=== PATIENT | male | born 1980 | race Caucasian/White ===

== ENCOUNTER 2021-01-16 23:09 | Emergency (ER) | payer OTHER ==
[~2021-01-16 23:09] MED LIST: ALBUTEROL1.25 MG/3 INH; BACTRIM DS TAB1 EACH PO; CLARITIN10 M1 PO; CLARITIN10 MG PO; CLARITIN5 MG/5 ML PO; CLEOCIN 150MG150 MG PO; EPIPEN 2-P0.3 MG/0.3 INJ; IPRAT-ALBUT 0.5-3 ML INH; IPRAT-ALBUT 0.5-3 ML NEB; KEFLEX SUS250 MG/5 M PO; KENALOG CREAM 015 GM TOP; ZITHROMAX200 MG/5 M PO; ZITHROMAX500 MG PO
== END 2021-01-17 01:43 | disposition home or self-care (01) ==
LOC: ER1 23:09
DX: T38.3X3A Poisoning by insulin and oral hypoglycemic [antidiabetic] drugs, assault, initial encounter (principal); E11.9 Type 2 diabetes mellitus without complications; J44.9 Chronic obstructive pulmonary disease, unspecified; Z79.4 Long term (current) use of insulin
CPT/HCPCS: 82962; 99284

== ENCOUNTER 2021-08-01 14:30 | Inpatient (IN) | payer OTHER ==
[~2021-08-01] VITALS: Ht 162.6 cm; Wt 112.2 kg
[2021-08-01 16:21] LABS: HEMOGLOBIN 14.3 gm/dl (14.0-17.5); RED BLOOD COUNT 5.1 M/UL (4.20-5.50); WHITE BLOOD COUNT 6.2 K/UL (4.5-11.0)
[2021-08-02 04:29] LABS: HEMOGLOBIN 13.4 gm/dl (14.0-17.5); WHITE BLOOD COUNT 3.7 K/UL (4.5-11.0)
[2021-08-02 04:57] LABS: BUN/CREATININE RATIO 13 (0-10)
[2021-08-02] MEDS ORDERED: BUDESONIDE0.5 MG/2 M INH (10:25)
[2021-08-02] MEDS ORDERED: IPRAT-ALBUT 0.5-3 ML INH (10:26)
[2021-08-02] MEDS ORDERED: NOVOLOG FL100 UNIT/1 SQ (10:26)
[2021-08-02] MEDS ORDERED: LANTUS SOL100 UNIT/1 SQ (10:26)
[2021-08-02] MEDS ORDERED: OMEPRAZOLE40 MG PO (10:26)
[2021-08-02] MEDS ORDERED: TYLENOL325 M1 PO (10:27)
[2021-08-03 02:48] LABS: HEMOGLOBIN 13.5 gm/dl (14.0-17.5); RED BLOOD COUNT 5.04 M/UL (4.20-5.50); WHITE BLOOD COUNT 3.3 K/UL (4.5-11.0)
[2021-08-03 03:02] LABS: BUN/CREATININE RATIO 20 (0-10)
--- NOTE | 2021-08-03 23:52 | NUR ---
PT PULLED OUT IV TO LEFT UPPER ARM. APPEARS AXIOUS AND WILL NOT COOPERATE FOR STAFF TO ATTEMPT ANOTHER ONE. SISTER AT BEDSIDE AND STATES, " JUST WAIT UNTIL TOMORROW WHEN THE PICC LINE CAN BE PLACED." PT WAS ABLE TO RECIEVE HIS REMDISIVIR AND ANTIBIOTIC BEFORE PULLING OUT HIS IV.
[2021-08-04 02:55] LABS: HEMOGLOBIN 14.1 gm/dl (14.0-17.5); RED BLOOD COUNT 5.1 M/UL (4.20-5.50); WHITE BLOOD COUNT 4.9 K/UL (4.5-11.0)
[2021-08-04 03:08] LABS: BUN/CREATININE RATIO 23 (0-10)
[2021-08-06 09:17] LABS: HEMOGLOBIN 14.3 gm/dl (14.0-17.5); RED BLOOD COUNT 5.18 M/UL (4.20-5.50)
[2021-08-06 09:21] LABS: WHITE BLOOD COUNT 8.3 K/UL (4.5-11.0)
[2021-08-06 09:41] LABS: BUN/CREATININE RATIO 27 (0-10)
--- NOTE | 2021-08-07 16:39 | NUR ---
1400 - PT RESTLESS AND ATTEMPTING TO MOVE AROUND IN BED. SISTER AT BEDSIDE AND BEING VERBALLY AGRESSIVE WITH PT. PT NOTED TO BE WET WITH URINE. CALLED FOR HELP WITH CHANGING HIM. O2 SAT 87% WITH ABNORMAL PLETH. LINENS CHANGED AND PT CLEANED UP. O2 SAT PROBE CHANGED TO OTHER FOOT. PT WITH WEAK COUGH BUT WAS ABLE TO COUGH UP SOME THICK MEJIA SPUTUM OBTAINED WITH YAUNKER. O2 SAT DOWN TO 83% PRIOR TO COUGHING EPISODE. RESP NOTIFIED AND NEB TREATMENT GIVEN. O2 SAT 93-95%. SISTER AT BEDSIDE VERBALLY ABUSIVE TO STAFF. ON PHONE WITH FAMILY MEMBERS. DR CAMPOS NOTIFIED AND SAW PT. SPOKE WITH SISTER AT LENGTH ABOUT NEED FOR TRANSFER TO ICU. SISTER RELUCTANT TO TRANSFER. STATES PT HAD SIMILAR EPISODE ON SATURDAY AND DIDN'T REQUIRE TRANSFER. ABG'S DONE PER RT AND RESULTS SHOWED AND EXPLAINED BY MD TO SISTER. SISTER STILL RELUCTANT ON TRANSFER. MD REQUEST TO SPEAK WITH OTHER FAMILY MEMBERS ABOUT NEED FOR TRANSFER AND POSSIBLE INTUBATION. SISTER CALLED PT'S FATHER BUT WANTED TO TALK TO PARENT ALONE WITHOUT MD PRESENT. AFTER SISTER SPOKE WITH FATHER AT BEDSIDE, MD ENTERED ROOM AND EXPLAINED PT'S CONDITION TO FATHER AND SISTER. PT'S FATHER REQUEST THAT EVERY THING POSSIBLE BE DONE FOR PT. MD EXPLAINED POOR PROGNOSIS WITH PT'S MEDICAL HISTORY, CURRENT MEDICAL ISSUES AND INTUBATION. FATHER WANTS PT TRANSFERRED AND INTUBATED IF NECESSARY. EXPLAINED THAT PT WOULD BE VERY DIFFICULT INTUBATION AND WILL REQUIRE ASSIST FROM ANESTHIOLOGY. SISTER AND FATHER VERBALIZED UNDERSTANDING. PT TRANSPORTED VIA BED WITH O2 TO RM 2125.
--- NOTE | 2021-08-07 16:57 | NUR ---
0930 - ATTEMMPTED TO GIVE PT'S AM MEDS, BUT SISTER REFUSED R/T PT SLEEPING AT PRESENT. 1145 - PT AND SISTER SLEEPING. UPON ENTERING ROOM, SISTER SAT UP ON SOFA AND MOTIONED FOR NURSING STAFF TO LEAVE. EXPLAINED NEED TO CHECK PT AND SISTER REFUSED.
[2021-08-08 05:41] LABS: HEMOGLOBIN 15.4 gm/dl (14.0-17.5); RED BLOOD COUNT 5.58 M/UL (4.20-5.50); WHITE BLOOD COUNT 8.7 K/UL (4.5-11.0)
[2021-08-08 06:15] LABS: BUN/CREATININE RATIO 27 (0-10)
--- NOTE | 2021-08-09 00:06 | NUR ---
PT TURNED TO RIGHT SIDE , 02 SATS DECREASED TO 83% . ATTEMPTS TO REPOSITION IN AN ATTEMPT TO INCREASE OXYGENATION. 02 SATS REMAIN 84-88% RESPIATORY AT BEDSIDE. 100% NRB MASK PLACED OVER CURRENT AIR-VO. CONVERSATION WITH FATHER ABOUT A PLAN OF ACTION SHOULD OXYGEN LEVELS REMAIN LOW. HE WAS INDECISIVE TO WHAT HE WANTED. A CALL WAS THEN PLACED TO PATIENTS SISTER ( JOVON) ALL QUESTIONS AND CONCERNS ADDRESSED. ALL WERE IN AGREEMENT TO INTUBATE IF THAT BECAME NECESSARY.
[2021-08-09 08:05] LABS: HEMOGLOBIN 16.1 gm/dl (14.0-17.5); RED BLOOD COUNT 5.74 M/UL (4.20-5.50); WHITE BLOOD COUNT 8.4 K/UL (4.5-11.0)
[2021-08-09 08:32] LABS: BUN/CREATININE RATIO 24 (0-10)
[2021-08-10 05:33] LABS: BUN/CREATININE RATIO 26 (0-10)
[2021-08-11 05:25] LABS: HEMOGLOBIN 16.3 gm/dl (14.0-17.5); RED BLOOD COUNT 5.89 M/UL (4.20-5.50)
[2021-08-11 05:43] LABS: BUN/CREATININE RATIO 26 (0-10)
[2021-08-11 05:59] LABS: WHITE BLOOD COUNT 14.3 K/UL (4.5-11.0)
[2021-08-12 06:10] LABS: BUN/CREATININE RATIO 21 (0-10)
[2021-08-12 15:29] LABS: HEMOGLOBIN 15.7 gm/dl (14.0-17.5); RED BLOOD COUNT 5.67 M/UL (4.20-5.50); WHITE BLOOD COUNT 14.4 K/UL (4.5-11.0)
[2021-08-13 05:31] LABS: RED BLOOD COUNT 5.75 M/UL (4.20-5.50); WHITE BLOOD COUNT 17.1 K/UL (4.5-11.0)
[2021-08-13 06:04] LABS: BUN/CREATININE RATIO 18 (0-10)
[2021-08-14 05:24] LABS: HEMOGLOBIN 15.2 gm/dl (14.0-17.5); RED BLOOD COUNT 5.63 M/UL (4.20-5.50); WHITE BLOOD COUNT 19.2 K/UL (4.5-11.0)
[2021-08-14 06:08] LABS: BUN/CREATININE RATIO 22 (0-10)
[2021-08-15 05:09] LABS: HEMOGLOBIN 15.1 gm/dl (14.0-17.5); RED BLOOD COUNT 5.56 M/UL (4.20-5.50); WHITE BLOOD COUNT 19.1 K/UL (4.5-11.0)
[2021-08-15 05:18] LABS: BUN/CREATININE RATIO 20 (0-10)
[2021-08-16 05:21] LABS: RED BLOOD COUNT 5.38 M/UL (4.20-5.50); WHITE BLOOD COUNT 23.3 K/UL (4.5-11.0)
[2021-08-16 05:47] LABS: BUN/CREATININE RATIO 22 (0-10)
[2021-08-17 08:22] LABS: HEMOGLOBIN 15.7 gm/dl (14.0-17.5); RED BLOOD COUNT 5.75 M/UL (4.20-5.50); WHITE BLOOD COUNT 27.5 K/UL (4.5-11.0)
[2021-08-17 09:08] LABS: BUN/CREATININE RATIO 22 (0-10)
[2021-08-18 07:29] LABS: HEMOGLOBIN 15.1 gm/dl (14.0-17.5); RED BLOOD COUNT 5.53 M/UL (4.20-5.50); WHITE BLOOD COUNT 25.5 K/UL (4.5-11.0)
[2021-08-18 07:54] LABS: BUN/CREATININE RATIO 17 (0-10)
[2021-08-19 02:59] LABS: HEMOGLOBIN 14.6 gm/dl (14.0-17.5); RED BLOOD COUNT 5.25 M/UL (4.20-5.50); WHITE BLOOD COUNT 22.4 K/UL (4.5-11.0)
[2021-08-19 03:13] LABS: BUN/CREATININE RATIO 17 (0-10)
[2021-08-20 02:44] LABS: HEMOGLOBIN 13.7 gm/dl (14.0-17.5); RED BLOOD COUNT 5.05 M/UL (4.20-5.50); WHITE BLOOD COUNT 17.9 K/UL (4.5-11.0)
[2021-08-20 03:11] LABS: BUN/CREATININE RATIO 18 (0-10)
[2021-08-21 03:05] LABS: HEMOGLOBIN 13.7 gm/dl (14.0-17.5); RED BLOOD COUNT 5.01 M/UL (4.20-5.50); WHITE BLOOD COUNT 13.1 K/UL (4.5-11.0)
[2021-08-21 03:19] LABS: BUN/CREATININE RATIO 18 (0-10)
[2021-08-22 07:07] LABS: HEMOGLOBIN 13.8 gm/dl (14.0-17.5); RED BLOOD COUNT 4.86 M/UL (4.20-5.50); WHITE BLOOD COUNT 13.8 K/UL (4.5-11.0)
[2021-08-22 07:10] LABS: BUN/CREATININE RATIO 17 (0-10)
[2021-08-23 06:34] LABS: HEMOGLOBIN 13.9 gm/dl (14.0-17.5); RED BLOOD COUNT 5.1 M/UL (4.20-5.50); WHITE BLOOD COUNT 10.6 K/UL (4.5-11.0)
[2021-08-23 07:07] LABS: BUN/CREATININE RATIO 16 (0-10)
--- NOTE | 2021-08-23 15:56 | NUR ---
F/C DC'D EARLIER. PATIENT HASN'T VOIDED. BLADDER SCAN ESTIMATED 260CC URINE. PATIENT FATHER STATED THAT PATIENT DOESN'T URINATE MUCH AT HOME. NOTIFIED AND ORDER RECEIVED TO DC HOME. NO DISTRESS NOTED. ABD SOFT AND NON DISTENDED.
== END 2021-08-23 16:25 | disposition home health service (06) | DRG 177 ==
LOC: ER1 14:30 → CDU 17:36 → CCU 17:36 → MED SURG 4 17:36 → PROG CARE 08-02 20:42 → CCU 08-07 16:04 → PROG CARE 08-17 03:09 → MED SURG 4 08-21 15:04
PROVIDERS: Internal Medicine; Internal Medicine Critical Care Medicine; Internal Medicine Pulmonary Disease; Physician Assistant Medical; ADMIT Internal Medicine Infectious Disease
PROC: XW033E5 Introduction of Remdesivir Anti-infective into Peripheral Vein, Percutaneous Approach, New Technology Group 5 (ICD-10-PCS; principal; 2021-08-01)
PROC: 3E0333Z Introduction of Anti-inflammatory into Peripheral Vein, Percutaneous Approach (ICD-10-PCS; 2021-08-01)
PROC: 8E0ZXY6 Isolation (ICD-10-PCS; 2021-08-01)
PROC: XW033H5 Introduction of Tocilizumab into Peripheral Vein, Percutaneous Approach, New Technology Group 5 (ICD-10-PCS; 2021-08-02)
PROC: 5A0955A Assistance with Respiratory Ventilation, Greater than 96 Consecutive Hours, High Flow/Velocity Cannula (ICD-10-PCS; 2021-08-02)
PROC: B24BZZZ Ultrasonography of Heart with Aorta (ICD-10-PCS; 2021-08-17)
PROC: 5A0935A Assistance with Respiratory Ventilation, Less than 24 Consecutive Hours, High Flow/Velocity Cannula (ICD-10-PCS; 2021-08-21)
DX: U07.1 COVID-19 (principal); J12.82 Pneumonia due to coronavirus disease 2019; J15.9 Unspecified bacterial pneumonia; J80 Acute respiratory distress syndrome; N17.9 Acute kidney failure, unspecified; E66.2 Morbid (severe) obesity with alveolar hypoventilation; J44.0 Chronic obstructive pulmonary disease with (acute) lower respiratory infection; I10 Essential (primary) hypertension; E11.9 Type 2 diabetes mellitus without complications; E86.0 Dehydration; E11.65 Type 2 diabetes mellitus with hyperglycemia; K21.9 Gastro-esophageal reflux disease without esophagitis; T38.0X5A Adverse effect of glucocorticoids and synthetic analogues, initial encounter; Q90.9 Down syndrome, unspecified; Z79.4 Long term (current) use of insulin; Z82.49 Family history of ischemic heart disease and other diseases of the circulatory system; Z79.899 Other long term (current) drug therapy; Z23 Encounter for immunization; Z68.35 Body mass index [BMI] 35.0-35.9, adult
CPT/HCPCS: ECHO; 36415; 36600; 71045; 74230; 80048; 80053; 82550; 82553; 82728; 82803; 82962; 83036; 83605; 83615; 83735; 83874; 83880; 84100; 84132; 84443; 84484; 85025; 85027; 85379; 85384; 86140; 87040; 87081; 92526; 92610; 92611-GN; 93005; 93306; 93970; 94640; 94664; 94667; 94668; 94760; 96372; 96374; 96376; 97110; 97110-GP-CQ; 97161; 97166; 97530; 97530-GP-CQ; 99285; C9113; G0378; J0248; J1100; J1120; J1335; J1650; J1885; J1940; J2060; J2270; J2543; J3480; J7030; J7040; J7050; J7070; Q0249; Q9967